=== PATIENT | female | born 1985 | race Two or more races ===

== ENCOUNTER 2022-10-01 23:05 | Emergency (ER) | payer SELFPAY ==
[~2022-10-01] VITALS: Ht 170.2 cm; Wt 225.0 kg
[2022-10-02] MEDS ORDERED: ONDANSETRON ODT 4 MG TAB PO ONE (00:30)
[2022-10-02] MEDS ORDERED: ACETAMINOPHEN/CODEINE#3 (300/30mg) TAB PO ONE (00:30)
[2022-10-02] MEDS ORDERED: ACE3T PO ×2 (01:11→01:29)
[2022-10-02] MEDS ORDERED: ONDA-144 PO (01:11)
[2022-10-02 01:37] VITALS: BP 143/98
[2022-10-02] MEDS ORDERED: IBUP800T27 PO (01:38)
== END 2022-10-02 01:51 | disposition home or self-care (01) ==
LOC: ER 23:05
DX: R51.9 Headache, unspecified (principal); Z90.49 Acquired absence of other specified parts of digestive tract
CPT/HCPCS: 81002; 81025; 99283; Q0162